=== PATIENT | female | born 1945 | race Caucasian/White ===

== ENCOUNTER → 2019-07-30 | Outpatient (CLI) | payer MEDICARE, OTHER | LOC: GMAE 11:28 | PROVIDERS: ATTEND Family Medicine | DX: I10 Essential (primary) hypertension (principal); R94.6 Abnormal results of thyroid function studies; E11.9 Type 2 diabetes mellitus without complications; E78.2 Mixed hyperlipidemia ==

== ENCOUNTER → 2020-08-13 | Outpatient (CLI) | payer MEDICARE, OTHER | LOC: GMAE 11:06 | PROVIDERS: ATTEND Family Medicine | DX: I10 Essential (primary) hypertension (principal); E78.2 Mixed hyperlipidemia; E11.9 Type 2 diabetes mellitus without complications ==

== ENCOUNTER → 2020-10-06 | Outpatient (CLI) | payer MEDICARE, OTHER ==
--- NOTE | 2020-10-07 07:03 | US ---
EXAM DESCRIPTION: Renal: Ultrasound. CLINICAL HISTORY: 75 years Female Chronic kidney disease COMPARISON: None TECHNIQUE: Transcutaneous scanning: Two-dimensional and Doppler modes. FINDINGS: Right kidney measures 9.2 x 4.7 x 4.9 cm; volume 111.3 ml. Mid-renal cortical thickness is normal . Normal cortical echogenicity No hydronephrosis No echogenic stones. Smooth contour of the kidney with no perinephric fluid. Normal vascularity. Proximal ureter not seen.. Left kidney measures 10.1 x 4.6 x 5.4 cm; volume 131.3 ml. Mid-renal cortical thickness normal. Normal cortical echogenicity. Mild hydronephrosis. No echogenic stones. Smooth contour of the kidney with no perinephric fluid. Normal vascularity.. Proximal ureter is not seen.. Urinary bladder was visualized. Volume is 151.4 mL. Ureteral jet in the bladder seen bilaterally by color Doppler. Post void volume Abdominal aorta: Normal caliber from the proximal segment of the distal bifurcation IMPRESSION: 1. Mild hydronephrosis left kidney. Otherwise bilateral kidneys are unremarkable. Ureters are not seen. No perirenal fluid. 2. Bilateral ureteral jets seen within the bladder by color Doppler. No voiding by patient. 3. Abdominal aorta normal caliber. Electronically signed by: Dewey Woods MD 10/07/2020 7:01 AM [facility]
== END ==
LOC: RAD 10:22
PROVIDERS: ATTEND Internal Medicine Nephrology
DX: N18.4 Chronic kidney disease, stage 4 (severe) (principal); N13.30 Unspecified hydronephrosis